=== PATIENT | male | born 1985 | race Caucasian/White ===

== ENCOUNTER 2019-03-21 07:30 | Emergency (ER) | payer BC ==
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
[2019-03-21] MEDS ORDERED: BACITRACIN OINT TOP ONE (08:05)
[2019-03-21] MEDS ORDERED: TETANUS/DIPHTHERIA/PERTUSSIS 0.5 ML SYRINGE IM ONE (08:33)
[2019-03-21 08:42] VITALS: BP 148/88
== END 2019-03-21 08:44 | disposition home or self-care (01) ==
LOC: ED 07:30
DX: T23.252A Burn of second degree of left palm, initial encounter (principal); T23.251A Burn of second degree of right palm, initial encounter; T23.232A Burn of second degree of multiple left fingers (nail), not including thumb, initial encounter; T23.241A Burn of second degree of multiple right fingers (nail), including thumb, initial encounter; T21.14XA Burn of first degree of lower back, initial encounter; T31.0 Burns involving less than 10% of body surface; W19.XXXA Unspecified fall, initial encounter; X03.8XXA Other exposure to controlled fire, not in building or structure, initial encounter; Y93.89 Activity, other specified; R03.0 Elevated blood-pressure reading, without diagnosis of hypertension
CPT/HCPCS: 90471; 90715; 99282; 99283; A9270